=== PATIENT | male | born 1960 | race Caucasian/White ===

== ENCOUNTER 2020-10-02 08:03 | Emergency (ER) | payer BC, OTHER ==
[~2020-10-02 08:03] MED LIST: BACTRIM DS TAB1 EACH PO; HYDRALAZINE HCL25 MG PO; KEFLEX CAP 500500 MG PO; LORTAB 5-325 M1 EACH PO; LYRICA200 MG PO; NORVASC10 MG PO; PERCOCET 5-3251 EACH PO; PERCOCET 7.5-31 EACH PO; PREDNISONE 20 M20 MG PO; PROAIR HFA8.5 GM INH; TESTOSTERONE INJ; TOPROL XL100 MG PO; VIAGRA100 MG PO
[2020-10-02 08:58] LABS: HEMOGLOBIN 18.4 gm/dl (14.0-17.5); RED BLOOD COUNT 6.02 M/UL (4.20-5.50); WHITE BLOOD COUNT 5.7 K/UL (4.5-11.0)
[2020-10-02 09:23] LABS: BUN/CREATININE RATIO 13 (0-10)
== END 2020-10-02 17:47 | disposition home or self-care (01) ==
LOC: ER1 08:03
PROVIDERS: Physician Assistant
DX: R06.02 Shortness of breath (principal); E78.5 Hyperlipidemia, unspecified; I10 Essential (primary) hypertension; F17.200 Nicotine dependence, unspecified, uncomplicated; Z79.899 Other long term (current) drug therapy
CPT/HCPCS: 71046; 80053; 82550; 82553; 83874; 83880; 84484; 85025; 93005; 94664; 99285